=== PATIENT | female | born 2000 | race Caucasian/White ===

== ENCOUNTER 2019-02-13 11:43 | Emergency (ER) | payer MEDICAID ==
[~2019-02-13] VITALS: Ht 170.2 cm; Wt 50.0 kg
[2019-02-13] MEDS ORDERED: SODIUM CHLORIDE 0.9% 1,000 ML IV ONE (12:02)
[2019-02-13] MEDS ORDERED: MORPHINE SULFATE 4 MG/ML CPJ (NOT FOR IM USE) IV STA (12:02)
[2019-02-13] MEDS ORDERED: ONDANSETRON HCL 4MG/2ML INJ IV STA (12:02)
[2019-02-13 12:47] LABS: BASOPHILS % 0.7 % (0.0-2.0); EOSINOPHILS % 0.1 % (0.0-5.0); HEMATOCRIT. 42.3 % (36.0-48.0); HEMOGLOBIN. 14.5 g/dL (12.0-16.0); LYMPHOCYTES % 18.7 % (20.0-50.0); MEAN CORPUSCULAR HEMOGLOBIN 33.4 pg (28.0-32.0); MEAN CORPUSCULAR VOLUME 97.3 fL (81.0-99.0); MEAN PLATELET VOLUME 8.1 fl (7.4-10.4); MONOCYTES % 4.9 % (2.0-8.0); NEUTROPHILS % 75.6 % (40.0-76.0); PLATELET 366 x1000/uL (130-400); RED BLOOD CELL COUNT 4.34 mill/uL (4.2-5.4); RED CELL DISTRIBUTION WIDTH 14.8 % (11.6-14.6)
[2019-02-13 12:50] LABS: CHLORIDE 108 mEq/L (98-107)
[2019-02-13 12:54] LABS: ETHANOL BLOOD < 10 mg/dL
[2019-02-13 13:00] LABS: INR 1.2; PROTHROMBIN TIME 11.8 sec (9.6-11.0)
[2019-02-13 13:05] LABS: HCG SCREEN NEGATIVE
[2019-02-13 14:02] LABS: CLARITY URINE CLEAR (CLEAR); COLOR URINE YELLOW (YELLOW); KETONES URINE 2+ (NEGATIVE); LEUKOCYTE ESTERASE URINE TRACE (NEGATIVE); NITRITE URINE NEGATIVE (NEGATIVE); OCCULT BLOOD URINE NEGATIVE (NEGATIVE); PH URINE 6.5 (4.5-8.0); PROTEIN URINE NEGATIVE (NEGATIVE); SPECIFIC GRAVITY URINE 1.021 (1.005-1.030)
[2019-02-13] MEDS ORDERED: IOHEXOL-300 100 ML BOTTLE ONE (14:11)
[2019-02-13] MEDS ORDERED: CEFTRIAXONE 1 G PREMIX 50 ML IV ONE (14:15)
[2019-02-13 14:16] LABS: *AMPHETAMINES SCREEN URINE NEGATIVE (NEGATIVE); *BARBITURATES SCREEN URINE NEGATIVE (NEGATIVE); *BENZODIAZEPINES SCREEN URINE NEGATIVE (NEGATIVE)
[2019-02-13 14:17] LABS: *COCAINE SCREEN URINE NEGATIVE (NEGATIVE); METHADONE URINE SCREEN NEGATIVE (NEGATIVE); OPIATES URINE SCREEN NEGATIVE (NEGATIVE); PHENCYCLIDINE URINE SCREEN NEGATIVE (NEGATIVE)
[2019-02-13 14:23] LABS: CANNABINOID URINE SCREEN PRESUMTIVE POSITIVE (NEGATIVE)
[2019-02-13 16:20] VITALS: BP 116/75
== END 2019-02-13 16:37 | disposition home or self-care (01) ==
LOC: ER 11:43
DX: N39.0 Urinary tract infection, site not specified (principal); R11.10 Vomiting, unspecified; F12.90 Cannabis use, unspecified, uncomplicated
CPT/HCPCS: 36415; 74177; 80053; 80305; 80320; 81003; 81025; 83690; 84703; 85025; 85610; 87086; 96361; 96365; 96375; 99284; J0696; J2270; J2405; J7030; Q9967; G0480

== ENCOUNTER 2020-11-13 21:42 | Emergency (ER) | payer SELFPAY ==
[~2020-11-13] VITALS: Ht 149.9 cm; Wt 52.8 kg
[2020-11-13] MEDS ORDERED: ACETAMINOPHEN 325MG TABLET PO STA (22:21)
[2020-11-13 22:58] LABS: CLARITY URINE TURBID (CLEAR); COLOR URINE YELLOW (YELLOW); KETONES URINE NEGATIVE (NEGATIVE); LEUKOCYTE ESTERASE URINE TRACE (NEGATIVE); NITRITE URINE NEGATIVE (NEGATIVE); OCCULT BLOOD URINE NEGATIVE (NEGATIVE); PH URINE 8.5 (4.5-8.0); PROTEIN URINE NEGATIVE (NEGATIVE); SPECIFIC GRAVITY URINE 1.017 (1.005-1.030)
[2020-11-13 23:11] LABS: *AMPHETAMINES SCREEN URINE NEGATIVE (NEGATIVE); *BARBITURATES SCREEN URINE NEGATIVE (NEGATIVE); *BENZODIAZEPINES SCREEN URINE NEGATIVE (NEGATIVE)
[2020-11-13 23:12] LABS: *COCAINE SCREEN URINE NEGATIVE (NEGATIVE); METHADONE URINE SCREEN NEGATIVE (NEGATIVE); OPIATES URINE SCREEN NEGATIVE (NEGATIVE); PHENCYCLIDINE URINE SCREEN NEGATIVE (NEGATIVE)
[2020-11-13 23:15] LABS: CANNABINOID URINE SCREEN PRESUMTIVE POSITIVE (NEGATIVE)
[2020-11-13 23:30] LABS: CHLORIDE 110 mEq/L (98-107)
[2020-11-13 23:33] LABS: ETHANOL BLOOD < 10 mg/dL
[2020-11-13 23:40] LABS: BASOPHILS % 0.5 % (0.0-2.0); EOSINOPHILS % 2.1 % (0.0-5.0); HEMATOCRIT. 37.5 % (36.0-48.0); HEMOGLOBIN. 12.9 g/dL (12.0-16.0); LYMPHOCYTES % 38.8 % (20.0-50.0); MEAN CORPUSCULAR VOLUME 98.8 fL (81.0-99.0); MEAN PLATELET VOLUME 7.6 fl (7.4-10.4); MONOCYTES % 9.9 % (2.0-8.0); NEUTROPHILS % 48.7 % (40.0-76.0); PLATELET 396 x1000/uL (130-400); RED CELL DISTRIBUTION WIDTH 18.6 % (11.6-14.6)
[2020-11-13 23:50] LABS: HCG SCREEN NEGATIVE
[2020-11-14] MEDS ORDERED: ACET-2708 MT (02:00)
[2020-11-14] MEDS ORDERED: LIDOCAINE HCL 1% 20ML VIAL (Pyxis) INJ INFIL ONE (02:00)
[2020-11-14] MEDS ORDERED: DOXY100C2 MT (02:00)
[2020-11-14] MEDS ORDERED: CEFTRIAXONE SODIUM 500 MG/VIAL IM ONE (02:00)
[2020-11-14] MEDS ORDERED: DOXYCYCLINE HYCLATE 100MG CAPSULE PO ONE (02:00)
[2020-11-14 04:32] VITALS: BP 120/60
== END 2020-11-14 04:45 | disposition home or self-care (01) ==
LOC: ER 21:42
DX: S00.83XA Contusion of other part of head, initial encounter (principal); R55 Syncope and collapse; F17.290 Nicotine dependence, other tobacco product, uncomplicated; M54.5 Low back pain; R10.30 Lower abdominal pain, unspecified; W18.39XA Other fall on same level, initial encounter; Y93.89 Activity, other specified; Y92.89 Other specified places as the place of occurrence of the external cause; Y99.8 Other external cause status
CPT/HCPCS: 36415; 70450; 70486; 71045; 72110; 76830; 76856; 80053; 80305; 80320; 81003; 81025; 83880; 84484; 84703; 85025; 87210; 93005; 96372; 99285; J0696; J3490; G0480

== ENCOUNTER 2022-02-17 10:56 | Emergency (ER) | payer MEDICAID ==
[~2022-02-17] VITALS: Ht 154.9 cm; Wt 59.0 kg
[~2022-02-17 10:56] MED LIST: ACET-2708 MT; DOXY100C5 MT
[2022-02-17 11:24] VITALS: BP 141/81
[2022-02-17] MEDS ORDERED: IBUPROFEN 600MG TABLET PO STA (11:39)
[2022-02-17] MEDS ORDERED: ACETAMINOPHEN 500MG TABLET PO ONE (12:15)
[2022-02-17 12:21] LABS: BASOPHILS % 0.3 % (0.0-2.0); EOSINOPHILS % 0.1 % (0.0-5.0); HEMATOCRIT. 40.8 % (36.0-48.0); HEMOGLOBIN. 13.7 g/dL (12.0-16.0); LYMPHOCYTES % 19.9 % (20.0-50.0); MEAN CORPUSCULAR HEMOGLOBIN 31.6 pg (28.0-32.0); MEAN CORPUSCULAR VOLUME 93.7 fL (81.0-99.0); MEAN PLATELET VOLUME 7.9 fl (7.4-10.4); MONOCYTES % 5.4 % (2.0-8.0); NEUTROPHILS % 74.3 % (40.0-76.0); PLATELET 397 x1000/uL (130-400); RED BLOOD CELL COUNT 4.35 mill/uL (4.2-5.4); RED CELL DISTRIBUTION WIDTH 13.3 % (11.6-14.6)
[2022-02-17 12:24] LABS: CLARITY URINE CLEAR (CLEAR); COLOR URINE YELLOW (YELLOW); KETONES URINE TRACE (NEGATIVE); LEUKOCYTE ESTERASE URINE TRACE (NEGATIVE); NITRITE URINE NEGATIVE (NEGATIVE); OCCULT BLOOD URINE NEGATIVE (NEGATIVE); PH URINE 7.5 (4.5-8.0); PROTEIN URINE NEGATIVE (NEGATIVE); SPECIFIC GRAVITY URINE 1.019 (1.005-1.030); UROBILINOGEN URINE 0.2 E.U./dL (0.2-1.0)
[2022-02-17 12:29] LABS: CHLORIDE 108 mEq/L (98-107)
[2022-02-17 12:51] LABS: B-HCG QUANTITATIVE 5906 mIU/mL (<3)
[2022-02-17] MEDS ORDERED: NITR-87 MT (13:25)
[2022-02-17] MEDS ORDERED: TOPUD MT (13:25)
[2022-02-17] MEDS ORDERED: PREN-176 MT (13:27)
== END 2022-02-17 13:42 | disposition home or self-care (01) ==
LOC: ER 10:56
DX: R35.0 Frequency of micturition (principal); O23.41 Unspecified infection of urinary tract in pregnancy, first trimester; N39.0 Urinary tract infection, site not specified; Z3A.01 Less than 8 weeks gestation of pregnancy
CPT/HCPCS: 36415; 76801; 80053; 81003; 81025; 84702; 85025; 99284